=== PATIENT | female | born 1950 | race Caucasian/White ===

== ENCOUNTER → 2017-06-13 | Day surgery (SDC) | payer MEDICARE, BC ==
[~2017-06-13] MED LIST: ATOR10TA15 PO; BUPIVACAINE HCL PF 0.5% 30 ML VIAL ONE; CALCTAB94 PO; CARB25TA4 PO; CARB25TA9 PO; DIAZ10TA PO; DOCU100T9 PO; ENOX40P SQ; ESOM1CAP6 PO; HYDR-3580 PO; HYDR-3583 PO; IOHEXOL 180 MG/ML 20 ML VIAL (for RAD DIAG) IT ONE; LIDOCAINE HCL 1% 30 ML VIAL OTHER ONE; MELO15TA20 PO; MEPERIDINE HCL 25 MG/ML VIAL IV ONE; PRIS50TA PO; PROB1TAB PO; PROPOFOL 200 MG/20 ML AMP IV ONE; TRAV0.00 EACH EYE; TRIAMCINOLONE ACETONIDE 40 MG/ML VIAL NERV BLOCK ONE; VALS160T4 PO; methylPREDNISolone ACETATE 40 MG/ML VIAL I-ARTICULR ONE
--- NOTE | 2017-06-13 09:30 | M6 ---
cc: Geoff Linder MD DATE: 06/13/2017 DATE OF : 1950 PROCEDURE: Fluoroscopically guided left L3-L4 and left L4-L5 transforaminal epidural steroid injection. History and physical was completed and signed. Consent was signed. Procedure site was marked. Medications were listed and reconciled. Pain score was recorded. Allergies were noted. Time out was taken. Fluoroscopy time was recorded where applicable. Sedation was administered or directed by Dr. Linder. The patient was given oxygen. The patient was monitored by a registered nurse. Total procedure time was greater than 15 minutes. Given oxygen. The patient was monitored by a than 15 minutes. PROCEDURE NOTE: An IV was started, blood pressure cuff, pulse oximeter and EKG were applied. The patient was placed in the prone position on a Emeka table, sedated with small amounts of Versed and propofol titrated to effect. Vital signs were monitored and remained stable throughout the procedure. The patient remained responsive throughout the procedure. The lumbar area was scrubbed with antimicrobial solution, prepped with 10% Betadine solution, and draped with sterile drapes. Fluoroscopy was used in both the AP and lateral projections to clearly visualize the left L3-4 and left L4-5 neural foramen. Then separate sterile 22 gauge, 3 1/2-inch Chiba needles were advanced under fluoroscopic guidance into the dorsal-most aspect of each foramen. There was negative aspiration for blood or CSF. There were no reported paresthesias by the patient. There was no washout of 2 mL of Omnipaque. Then after waiting approximately 60 seconds, the patient was slowly given 2 mL of 1% Xylocaine, 2 mL of Omnipaque and 40 mg of Kenalog at each location. Following this, the patient was taken to the recovery room with stable vital signs, neurologically intact. MD EMILIANO Marshall/AKOSUA , 09:08 AM , 09:29 AM
== END | disposition home or self-care (01) ==
LOC: PHSDC 06:49
PROVIDERS: ATTEND Pain Medicine Interventional Pain Medicine
DX: M54.5 Low back pain (principal)
CPT/HCPCS: 64483; 64484; 99152; J1030; J2175; J3301; Q9965

== ENCOUNTER → 2017-09-01 | Outpatient (CLI) | payer MEDICARE, BC ==
[~2017-09-01] MED LIST changes: -BUPIVACAINE HCL PF 0.5% 30 ML VIAL ONE; -CARB25TA4 PO; -DIAZ10TA PO; -ENOX40P SQ; -HYDR-3580 PO; -IOHEXOL 180 MG/ML 20 ML VIAL (for RAD DIAG) IT ONE; -LIDOCAINE HCL 1% 30 ML VIAL OTHER ONE; -MEPERIDINE HCL 25 MG/ML VIAL IV ONE; -PROB1TAB PO; -PROPOFOL 200 MG/20 ML AMP IV ONE; -TRIAMCINOLONE ACETONIDE 40 MG/ML VIAL NERV BLOCK ONE; -methylPREDNISolone ACETATE 40 MG/ML VIAL I-ARTICULR ONE
[2017-09-01 09:36] LABS: AUTOMATED NEUTROPHIL # 2.4 TH/MM3 (1.8-7.7); BASOPHIL % 0.8 % (0.0-2.0); EOSINOPHIL # 0.2 TH/MM3 (0-0.4); EOSINOPHIL % 4.2 % (0.0-4.0); LYMPH % 30.7 % (9.0-44.0); LYMPHOCYTE # 1.3 TH/MM3 (1.0-4.8); MEAN CELL VOLUME 84.7 FL (80.0-100.0); MEAN CORPUSCULAR HEMOGLOBIN 27.4 PG (27.0-34.0); MEAN CORPUSCULAR HGB CONC 32.4 % (32.0-36.0); MEAN PLATELET VOLUME 7.1 FL (7.0-11.0); MONOCYTE # 0.4 TH/MM3 (0-0.9); NEUT % 55.3 % (16.0-70.0); PLATELET COUNT 270 TH/MM3 (150-450); RED BLOOD COUNT 4.37 MIL/MM3 (4.00-5.30); RED CELL DISTRIBUTION WIDTH 20.4 % (11.6-17.2); WHITE BLOOD COUNT 4.4 TH/MM3 (4.0-11.0)
[2017-09-01 10:04] LABS: WESTERGREN SEDIMENTATION RATE 24 mm/hr (0-30)
[2017-09-01 10:15] LABS: BILIRUBIN, URINE NEG (NEG); BLOOD, URINE SMALL (NEG); GLUCOSE,URINE NEG (NEG); KETONE, URINE NEG (NEG); MUCUS URINE FEW /lpf (OCC); NITRITE,URINE NEG (NEG); URINE COLOR YELLOW (YELLW/STRAW); URINE LEUKOCYTE ESTERASE NEG (NEG)
--- NOTE | 2017-09-01 11:44 | RADRPT ---
EXAM DATE: 09/01/2017 11:41 AM EDT AGE/SEX: 66 years / Female INDICATIONS: Evaluate for pneumonia, pneumothorax, or communicable disease. Pre-op right hip replace ment. CLINICAL DATA: This is the patient's initial encounter. Patient reports that signs and symptoms have been present for 1 day and indicates a pain score of 0/10. MEDICAL/SURGICAL HISTORY: Anemia. Hypertension. . Appendectomy. Tonsillectomy. Tubal ligation. Left hip replacement [place] [facility] [place]. . FINDINGS: PA and lateral views of the chest demonstrate the lungs to be symmetrically aerated without evidence of mass, infiltrate or effusion. The cardiomediastinal contours are unremarkable. Osseous structures are intact. CONCLUSION: Negative chest for acute disease Electronically signed by: Vahe Sanches MD 09/01/2017 11:43 AM EDT
--- NOTE | 2017-09-01 16:16 | EKG ---
Date Performed: 09/01/2017 Time Performed: 09:29:31 PTAGE: 66 years EKG: Sinus rhythm RIGHT BUNDLE BRANCH BLOCK ABNORMAL ECG NO PREVIOUS TRACING DOCTOR: Prasanna Garay Interpretating Date/Time 09/01/2017 16:15:30
[2017-09-01 20:27] LABS: ALBUMIN 3.9 GM/DL (3.4-5.0); AST (GOT) 12 U/L (15-37); BICARBONATE 24.3 MEQ/L (21.0-32.0); BLOOD UREA NITROGEN 19 MG/DL (7-18); CALCIUM 8.7 MG/DL (8.5-10.1); CHLORIDE 102 MEQ/L (98-107); CREATININE 0.93 MG/DL (0.50-1.00); GLOMERULAR FILTRATION RATE 60 ML/MIN (>89); GLUCOSE,FASTING 78 MG/DL (74-99); SODIUM (NA) 140 MEQ/L (136-145)
[2017-09-01 20:31] LABS: ALKALINE PHOSPHATASE 122 U/L (45-117); ALT (GPT) 16 U/L (10-53); TOTAL BILIRUBIN ADULT 0.3 MG/DL (0.2-1.0)
== END ==
LOC: CPRE 09:01
PROVIDERS: ATTEND Orthopaedic Surgery Sports Medicine
DX: Z01.810 Encounter for preprocedural cardiovascular examination (principal); Z01.811 Encounter for preprocedural respiratory examination; Z01.812 Encounter for preprocedural laboratory examination; Z01.818 Encounter for other preprocedural examination; Z79.01 Long term (current) use of anticoagulants; Z96.60 Presence of unspecified orthopedic joint implant; M25.50 Pain in unspecified joint; M16.11 Unilateral primary osteoarthritis, right hip; R94.31 Abnormal electrocardiogram [ECG] [EKG]
CPT/HCPCS: 36415; 71046; 80053; 81001; 85025; 85610; 85652; 85730; 93005

== ENCOUNTER 2017-09-18 05:44 | Inpatient (IN) ==
[2017-09-20 09:18] VITALS: RESP 18
[2017-09-21 18:14] VITALS: BP 96/57; PULSE 94; TEMP 98.3; O2SAT 99
== END 2017-09-21 17:07 ==
LOC: HSDI 05:44 → N06 12:05
PROVIDERS: ADMIT Orthopaedic Surgery Sports Medicine; ATTEND Orthopaedic Surgery Sports Medicine